=== PATIENT | male | born 1945 | race Caucasian/White ===

== ENCOUNTER → 2017-06-25 | Outpatient (CLI) | payer MEDICARE, BC ==
--- NOTE | 2017-06-25 17:09 | EXE ---
[place] [address] STRESS ECHOCARDIOGRAM Name: HOLLY BOYCE Room: [facility]#: [id number] Admission: 06/25/17 Attend Phys: Isaiah Melchor, Discharge: Date of : 43 Date of Service: 06/25/17 1708 Report #: [id number] THIS REPORT FOR: //name// APPROVED REPORT Study performed: 06/25/2017 13:14:41 Exam: Stress Echocardiogram Indication: Dyspnea Stress Nurse: Floresita Guerra RN Supervising Physician: Grabiel Alvarado MD Status: routine Ht: 6 ft 0 in HR: 67 bpm BP: 129/69 mmHg Rhythm: NSR Medical History Cardiac Risk Factors: FHX of CAD, HTN Procedure The patient underwent an Exercise Stress Test using the Catracho Protocol. Blood pressure, heart rate, and EKG were monitored. An Echocardiogram was performed by prepress technician in four stages in quad fashion. At peak stress, four selected images were obtained and placed side by side with resting images for comparison. Echo Enhancing Agent Indication: Endocardial border delineation Agent(s) / Amount(s) Used: Optison 8 cc Stress Test Details Stress Test: Exercise stress testing was performed using a Catracho protocol. HR Resting HR: 67 bpm Max Heart Rate (APMHR): 148 bpm Max HR Achieved: 158 bpm Target HR (85% APMHR): 125 bpm % of APMHR: 106 Recovery HR: 90 bpm HR response to stress: Normal HR response to stress BP Resting BP: 129/69 mmHg Max BP: 223/82 mmHg Recovery BP: 158/64 [place] [address] STRESS ECHOCARDIOGRAM Name: HOLLY BOYCE Room: [facility]#: [id number] Admission: 06/25/17 Attend Phys: Isaiah Melchor, Discharge: Date of : 43 Date of Service: 06/25/17 1708 Report #: [id number] ECG Resting ECG: Sinus Rhythm Stress ECG: Sinus Tachycardia Maximum ST Deviation: 0 mm Recovery ECG: Sinus Rhythm Recovery ST Deviation: 0 mm Clinical Reason for Termination: Maximal effort, Dyspnea Exercise duration: 5 min sec Highest Stage Achieved: Stage 2: 2.5 mph at 12% grade. Exercise capacity: 7.03 METs Pre-Stress Echo The resting Echocardiogram showed normal left ventricular contractility with an estimated Ejection Fraction of about 55-60%. Post-Stress Echo The stress Echocardiogram showed normal left ventricular contractility with an estimated Ejection Fraction of about 65-70%. Conclusion Clinical Response: Non-ischemic Exercise Capacity: Below Average Stress ECG Response: Non-ischemic Stress Echo Images: Non-ischemic low risk stress echo for future cardiac events Other Information Study Quality: Adequate <Conclusion> low risk stress echo for future cardiac events <ELECTRONICALLY SIGNED> By: Grabiel Alvarado MD, FACC 06/25/171707 07 07 Grabiel Alvarado MD, FACC /INF
== END ==
LOC: M.CRD 12:27
DX: R06.09 Other forms of dyspnea (principal)

== ENCOUNTER 2020-12-13 09:41 | Observation (INO) | payer MEDICARE, BC ==
[2020-12-13] VITALS (14 sets, daily range): BP systolic 111–147; BP diastolic 52–76
[~2020-12-13] VITALS: Ht 182.9 cm; Wt 127.0 kg
[~2020-12-13 09:41] MED LIST: ADULT LOW DOSE81 MG PO; CENTRUM SILVER1 EAC5 PO; CHOLECALCIFEROL1 GM; COZAAR 50 MG TA50 M1 PO; GLUCOSAMINE &1 EACH PO; MEGARED OMEGA-1 EAC1 PO
[2020-12-13 10:34] LABS: ABSOLUTE BASOPHILS 0.1 thou/uL (0.0-0.2); ABSOLUTE EOSINOPHILS 0.3 thou/uL (0.0-0.7); ABSOLUTE LYMPHOCYTES 2.8 thou/uL (0.8-5.3); ABSOLUTE MONOCYTES 0.7 thou/uL (0.0-1.2); ABSOLUTE NEUTROPHILS 4.5 thou/uL (1.6-8.1); BASOPHILS 1.1 %; EOSINOPHILS 3.6 %; HEMATOCRIT 45.5 % (42.0-52.0); HEMOGLOBIN 15.3 gm/dL (14.0-18.0); LYMPHOCYTES 33.2 %; MCH 29.6 pg (26.0-34.0); MCHC 33.7 g/dL (28.0-37.0); MONOCYTES 8.7 %; MPV 7.9 fl. (7.2-11.1); NUCLEATED RBCS 0 /100WBC; PLATELET COUNT* 238 thou/uL (150-400); POLYS 53.4 %; RBC 5.17 mil/uL (4.50-6.00); RDW-CV 13.5 % (10.5-14.5); WBC 8.5 thou/uL (4.0-11.0)
[2020-12-13 10:42] LABS: APTT 27.2 Seconds (25.0-31.3); PROTIME 10.4 Seconds (9.20-11.50)
[2020-12-13 11:07] LABS: ANION GAP 10 mmol/L (7-16); BUN 16 mg/dL (7-18); CALCIUM 8.9 mg/dL (8.5-10.1); CHLORIDE 101 mmol/L (98-107); CO2 28 mmol/L (21-32); CREATININE 1.4 mg/dL (0.6-1.3); GLUCOSE 107 mg/dL (70-99); POTASSIUM 4.2 mmol/L (3.5-5.1); SODIUM 139 mmol/L (136-145)
[2020-12-13 11:11] LABS: ALBUMIN 4.2 g/dL (3.4-5.0); ALKALINE PHOSPHATASE 78 U/L (46-116); CHOLESTEROL 188 mg/dL (<200); HDL CHOLESTEROL 44 mg/dL (>40); LDL CHOLESTEROL 112 mg/dL (<100); SGOT 21 U/L (15-37); SGPT 28 U/L (30-65); TC:HDL 4.3 Ratio (Not establshd); TOTAL PROTEIN 7.9 g/dL (6.4-8.2); TRIGLYCERIDE 163 mg/dL (<150); VLDL 33 mg/dL (<40)
[2020-12-13 11:12] LABS: SERUM ASSESSMENT Clear
--- NOTE | 2020-12-13 14:23 | EKG ---
[place] [address] ELECTROCARDIOGRAM REPORT Name: AUSTENDEBORAHHOLLY W [address] [id number] Admission: 12/13/20 Attend Phys: Isaiah Melchor, Discharge: Date of : 43 Date of Service: 12/13/20 1027 Report #: [id number] THIS REPORT FOR: //name// [facility] Test Date: 2020-12-13 Test Time: 10:27:37 Pat Name: HOLLY BOYCE Department: Room: [facility] Gender: M Director Of Purchasing: WELSEY : 1945 Requested By: Isaiah Melchor Order Number: [id number] Hanna MD: Grabiel Alvarado Measurements Intervals [place] Rate: 74 P: 5 TN: 196 QRS: -4 QRSD: 92 T: 14 QT: 384 QTc: 426 Interpretive Statements Sinus rhythm RSR' in V1 or V2, right VCD or RVH No previous ECG available for comparison Electronically Signed On 12-13-2020 14:23:15 CDT by Grabiel Alvarado [email or web address] <ELECTRONICALLY SIGNED> By: Grabiel Alvarado MD, [facility] 12/13/20 1423 1027 1027 Grabiel Alvarado MD, [facility] /EPI
--- NOTE | 2020-12-13 14:24 | EKG ---
[place] [address] ELECTROCARDIOGRAM REPORT Name: HOLLY BOYCE Room: [address]#: [id number] Admission: 12/13/20 Attend Phys: Isaiah Melchor, Discharge: Date of : 43 Date of Service: 12/13/20 1349 Report #: [id number] THIS REPORT FOR: //name// [facility] Test Date: 2020-12-13 Test Time: 13:49:38 Pat Name: HOLLY BOYCE Department: Room: [facility] Gender: M Hardwood Floor Layer: WESLEY : 1945 Requested By: Grabiel Alvarado Order Number: [id number] Reading MD: Grabiel Alvarado Measurements Intervals [place] Rate: 81 P: 31 AL: 184 QRS: -3 QRSD: 95 T: 18 QT: 399 QTc: 464 Interpretive Statements Sinus rhythm RSR' in V1 or V2, right VCD or RVH Compared to ECG 12/13/2020 10:27:37 No significant changes Electronically Signed On 12-13-2020 14:24:39 CDT by Grabiel Alvarado [email or web address] <ELECTRONICALLY SIGNED> By: Grabiel Alvarado MD, [facility] 12/13/20 1424 1349 1349 Grabiel Alvarado MD, [facility] /EPI
--- NOTE | 2020-12-13 16:43 | CARD ---
[address] [address] CARDIAC CATH REPORT Name: HOLLY BOYCE Room: [address] Abril Kearns#: [id number] Admission: 12/13/20 Attend Phys: Isaiah Melchor MD Discharge: Date of : 43 Report #: [id number] THIS REPORT FOR: cc: Nikolas Villalobos Vincent R. DO Blick, David R. MD [facility] ~ APPROVED REPORT Study performed: 12/13/2020 10:30:05 Patient Details Patient Status: Out-Patient Room #: The patient is a 75 year-old male Procedures Performed cath pci Indication Dyspnea, Positive stress test Risk Factors Hypercholesterolemia, Hypertension Admission/Lab Medications/Medications given during procedure Glycoprotein IllbIlla Inhibitors, Heparin Unfract. Procedure Narrative The patient was brought electively to the Cardiac Catheterization Laboratory and was prepped and draped in a sterile manner. The right femoral was infiltrated with 1% Lidocaine subcutaneous anesthesia. IV conscious sedation was used throughout procedure with appropriate monitoring and was performed in the presence of a registered nurse who was an independent trained observer other than the physician performing the procedure. The right femoral accessed via ultrasound guidance. A Providence 6fr sheath was inserted into the right femoral artery. Coronary angiography was performed using coronary diagnostic catheters. The right coronary system was accessed and visualized with a Diagnostic - JR4 catheter. The left coronary system was accessed and visualized with a Diagnostic -JL4 catheter. The left ventricle was accessed and visualized with a Diagnostic - Straight PIG catheter. Left ventricular/Aortic Valve gradient assessed via catheter pullback. Left ventriculogram was performed in HEARD projection. Closure device was deployed with a 6 [place] [address] CARDIAC CATH REPORT Name: HOLLY BOYCE Room: [address] García.#: [id number] Admission: 12/13/20 Attend Phys: Isaiah Melchor MD Discharge: Date of : 43 Report #: [id number] Hemostasis was obtained with manual pressure following sheath removal without any complications. The patient tolerated the procedure well and there were no complications associated with the procedure. A hematoma occurred. Attempted placement of an Angioseal, but the device was unable to be deployed. Hemostasis was achieved by manual pressure Intraoperative Conscious Sedation Sedation start time: 1149 Case end Time: 1245 Fentanyl 75.0 mcg Versed 2.0 mg Fluoro Time: 10.8 minutes Dose: DAP [id number] cGycm2 Diagnostic Cath Left Main The left main coronary artery is normal. LAD There are sequential 30% narrowings in the proximal and then mid left anterior ascending coronary artery. Diagonal 1 A moderate-sized first diagonal branch is normal. Diagonal 2 A moderate-sized second diagonal branch is normal. Circumflex There is a 30% ostial to proximal circumflex narrowing that is eccentric. The mid vessel exhibits a focal 80% narrowing. OM1 A tiny first obtuse marginal branch has a 50% ostial narrowing. OM2 A large second obtuse marginal branch is essentially normal. OM3 A large third obtuse marginal branch is essentially normal. 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 The vessel appears essentially normal in its proximal mid and distal portion. R PDA A moderate sized right PDA appears normal. RPLV A small right posterior lateral LV branch appears normal. Left Ventriculography The left ventricle is normal in size with normal contractility. The left ventricular ejection fraction is estimated to be 65%. Hemodynamics The aortic pressure is 111/59 mmHg with a mean of 79 mmHg. The left ventricular pressure is 125/0 mmHg with a mean of 19 [place] [address] CARDIAC CATH REPORT Name: HOLLY BOYCE Room: [address]#: [id number] Admission: 12/13/20 Attend Phys: Isaiah Melchor MD Discharge: Date of : 43 Report #: [id number] ventricular end diastolic pressure is 10 mmHg. There was no gradient across the aortic valve upon pullback. PCI Technique Lesion Anticoagulation was achieved with Heparin. bolus of IV aggrastat given Percutaneous coronary intervention was performed on the mid circumflex artery segment. The lesion stenosis prior to intervention was 80% with GERTRUDE 3 flow. A xb4.0 Guide Catheter was used to engage the lm ostium. A bmw Interventional Guidewire was used to cross the lesion. BALLOON DILATION A Balloon catheter 2.5 x 12 mm was inserted and inflated up to 16atm for 10seconds. Repeat angiography revealed the following post-dilatation results: 40% stenosis. STENT DEPLOYMENT A drug-eluting stent 3.0 x 15 mm was inserted and inflated up to 14atm for 15seconds. Repeat angiography revealed the following post-stent deployment results: 0% stenosis. Final angiography reveals 0 % stenosis with GERTRUDE 3 flow. Conclusion 1. Significant 80% narrowing of the mid circumflex coronary artery. 2. Otherwise moderate plaquing noted. 3. Normal left-ventricular systolic function. 4. Normal left ventricular end-diastolic pressure. 5. successful placement of a drug eluting stent in the mid circumflex artery. Recommendations 1. Percutaneous coronary intervention as performed. 2. Continue aggressive risk factor modification. Medications Administered Clopidogrel Diagnostic Cath Approved by: Isaiah Melchor MD Date/Time: <ELECTRONICALLY SIGNED> By: Grabiel Alvarado MD, [facility] 12/13/20 1643 164 1643Davijs Alvarado MD, [facility] /INF
[2020-12-14 01:07] VITALS: BP 116/54
[2020-12-14 04:03] LABS: HEMATOCRIT 35.5 % (42.0-52.0); MCH 30.2 pg (26.0-34.0); MCV 88.7 fL (80.0-100.0); MPV 7.8 fl. (7.2-11.1); RDW-CV 13.3 % (10.5-14.5); WBC 9.9 thou/uL (4.0-11.0)
[2020-12-14 04:08] LABS: HEMOGLOBIN 12.1 gm/dL (14.0-18.0)
[2020-12-14 04:31] LABS: CALCIUM 8.3 mg/dL (8.5-10.1); CREATININE 1.5 mg/dL (0.6-1.3); POTASSIUM 4.8 mmol/L (3.5-5.1)
[2020-12-14] MEDS ORDERED: CLOPIDOGREL75 MG PO (08:14)
[2020-12-14] MEDS ORDERED: LIPITOR 40 MG T40 M1 PO (08:14)
[2020-12-14 08:30] VITALS: BP 152/76
[2020-12-14 09:32] VITALS: BP 116/54
--- NOTE | 2020-12-14 11:23 | EKG ---
[place] [address] ELECTROCARDIOGRAM REPORT Name: HOLLY BOYCE Room: [address]#: [id number] Admission: 12/13/20 Attend Phys: Isaiah Melchor, Discharge: 12/14/20 Date of : 43 Date of Service: 12/14/20621 Report #: [id number] THIS REPORT FOR: //name// [facility] Test Date: 2020-12-14 Test Time: 06:22:37 Pat Name: HOLLY BOYCE Department: Room: [address] Gender: M Door Technician: [id number] : 1945 Requested By: Grabiel Alvarado Order Number: [id number] Hanna MD: Grabiel lAvarado Measurements Intervals [place] Rate: 65 P: 7 DE: 185 QRS: -5 QRSD: 97 T: 16 QT: 408 QTc: 425 Interpretive Statements Sinus rhythm Consider RVH or posterior infarct Compared to ECG 12/13/2020 13:49:38 no change Electronically Signed On 12-14-2020 11:23:22 CDT by Grabiel Alvarado [email or web address] <ELECTRONICALLY SIGNED> By: Grabiel Alvarado MD, FAC 12/14/20 1123 0622 0622 Grabiel Alvarado MD, [facility] /EPI
--- NOTE | 2020-12-17 09:47 | D ---
[address] [address] DISCHARGE SUMMARY Name: HOLLY BOYCE Room: [address] Abril Kearns#: [id number] Admission: 12/13/20 Attend Phys: Isaiah Melchor MD Discharge: 12/14/20 Date of : 43 Report #: [id number] THIS REPORT FOR: cc: Nikolas Villalobos,Isaiah Chase MD [facility] ~ cc: Dr. Nikolas Villalobos DATE OF DISCHARGE: 12/14/2020 DISCHARGE DIAGNOSES: 1. Unstable angina. 2. Coronary artery disease. 3. Hypertension. 4. Dyslipidemia. PROCEDURES DURING HOSPITALIZATION: 1. Coronary angiography. 2. Left ventriculography. 3. Left heart catheterization. 4. Percutaneous coronary intervention to the mid circumflex coronary artery with drug-eluting stent placement. HISTORY AND HOSPITAL COURSE: The patient was admitted electively for left heart catheterization and coronary angiography after an abnormal stress test. His primary complaint had been dyspnea on exertion that had been progressive. On catheterization, he was found to have an 80% mid circumflex coronary stenosis for which he underwent drug-eluting stent placement with excellent result. He had otherwise moderate nonocclusive coronary disease noted. Left ventricular systolic function on left ventriculogram was normal. The patient had a small hematoma post-catheterization that was stable at the time of discharge. His hospital course was otherwise unremarkable. DISCHARGE MEDICATIONS: Will include Plavix 75 mg daily, aspirin 81 mg daily, vitamin C one tablet daily, losartan 50 mg daily, Krill oil supplement daily, multivitamin 1 tablet daily, and atorvastatin 40 mg daily. DISPOSITION: The patient is to follow up in the Cardiology office in 4 weeks. <ELECTRONICALLY SIGNED> By: Isaiah Melchor MD, FACC 12/17/20 0947 0721 0820[facility] MD, FACC /nt
== END 2020-12-14 10:15 | disposition home or self-care (01) ==
LOC: M.CL 09:41 → M.TBA-CV 13:58 → M.2W 14:19
PROVIDERS: Internal Medicine Cardiovascular Disease; ADMIT Internal Medicine Cardiovascular Disease; ATTEND Internal Medicine Cardiovascular Disease
DX: I25.110 Atherosclerotic heart disease of native coronary artery with unstable angina pectoris (principal); Z20.822 Contact with and (suspected) exposure to COVID-19; I10 Essential (primary) hypertension; E78.5 Hyperlipidemia, unspecified; Z79.02 Long term (current) use of antithrombotics/antiplatelets; Z79.01 Long term (current) use of anticoagulants; Z79.82 Long term (current) use of aspirin; Z79.899 Other long term (current) drug therapy

== ENCOUNTER → 2020-12-18 | Outpatient (CLI) | payer MEDICARE, BC ==
[~2020-12-18] MED LIST changes: +CLOPIDOGREL75 MG PO; +LIPITOR 40 MG T40 M1 PO
--- NOTE | ~2020-12-18 | H ---
[place] [address] HISTORY AND PHYSICAL Name: HOLLY BOYCE Room: [facility]#: [id number] Admission: 12/18/20 Attend Phys: Isaiah Melchor MD Discharge: Date of : 43 Report #: [id number] THIS REPORT FOR: cc: Nikolas Villalobos Vincent R. DO Liston, Michael J. MD [facility] ~ cc: Nikolas Villalobos DO DATE OF SERVICE: 12/18/2020 ADMISSION HISTORY AND PHYSICAL INDICATION: The patient with abnormal stress test and physical symptoms being admitted for cardiac catheterization and possible coronary intervention. HISTORY OF PRESENT ILLNESS: The patient is a very pleasant 75-year-old gentleman with cardiac risk factors including hypertension and family history of coronary artery disease. He has been having increasing dyspnea on exertion. He underwent cardiac stress testing that showed evidence of stress-induced ischemia. He is being brought to the hospital today for coronary angiography and possible intervention. PAST MEDICAL HISTORY: 1. Hypertension. 2. Abnormal stress test. FAMILY HISTORY: Positive for coronary artery disease. SOCIAL HISTORY: The patient is . He does not smoke. He does not drink alcohol. REVIEW OF SYSTEMS: A 14-point review of systems positive for cough, shortness of breath, dyspnea on exertion. Otherwise, unremarkable. PHYSICAL EXAMINATION: VITAL SIGNS: Stable. Blood pressure is 148/66, pulse is 76 and regular. GENERAL: This is a pleasant-appearing healthy gentleman in no distress. Mood and affect appropriate. HEENT: The patient is wearing glasses. Extraocular muscles intact. Mucous membranes are moist. NECK: Shows no jugular venous distention. There are no carotid bruits. CHEST: Reveals clear lung frey without wheezes or rales. CARDIAC: Reveals a regular rhythm without gallop or murmur. ABDOMEN: Reveals normal bowel sounds. The abdomen is soft, nontender. EXTREMITIES: Shows no edema. Peripheral pulses 2+ and palpable. SKIN: [place] [address] HISTORY AND PHYSICAL Name: HOLLY BOYCE Kurt Room: [facility]#: [id number] Admission: 12/18/20 Attend Phys: Isaiah Melchor MD Discharge: Date of : 43 Report #: [id number] IMPRESSION AND RECOMMENDATIONS: 1. Abnormal stress test with symptoms to suggest angina. Plan: Coronary angiography and possible intervention. 2. Hypertension, adequately controlled at present. Continue home medications. 3. Possible dyslipidemia. Recommend follow up fasting lipid profile. By: 1705 1729Isaiah Melchor MD, FACC /nt
== END ==
LOC: M.ULTRA 15:53
PROVIDERS: ATTEND Internal Medicine Cardiovascular Disease
DX: T81.718A Complication of other artery following a procedure, not elsewhere classified, initial encounter (principal); I72.4 Aneurysm of artery of lower extremity; Y83.8 Other surgical procedures as the cause of abnormal reaction of the patient, or of later complication, without mention of misadventure at the time of the procedure; Y92.89 Other specified places as the place of occurrence of the external cause

== ENCOUNTER → 2021-01-14 | Outpatient (CLI) | payer MEDICARE, BC ==
[2021-01-14 09:46] LABS: CALCIUM 8.9 mg/dL (8.5-10.1); CREATININE 1.3 mg/dL (0.6-1.3); POTASSIUM 4.3 mmol/L (3.5-5.1)
== END ==
LOC: M.LAB 09:25
PROVIDERS: ATTEND Nurse Practitioner
DX: N28.9 Disorder of kidney and ureter, unspecified (principal)

== ENCOUNTER → 2021-02-25 | Outpatient (CLI) | payer MEDICARE, BC ==
[2021-02-25 10:39] LABS: ALBUMIN 3.7 g/dL (3.4-5.0); ALKALINE PHOSPHATASE 71 U/L (46-116); CHOLESTEROL 116 mg/dL (<200); DIRECT BILIRUBIN 0.2 mg/dL (<0.1-0.3); HDL CHOLESTEROL 40 mg/dL (>40); LDL CHOLESTEROL 43 mg/dL (<100); SGOT 19 U/L (15-37); SGPT 28 U/L (30-65); TC:HDL 2.9 Ratio (Not establshd); TOTAL BILIRUBIN 0.9 mg/dL (<0.1-1.0); TOTAL PROTEIN 7.3 g/dL (6.4-8.2); TRIGLYCERIDE 167 mg/dL (<150); VLDL 33 mg/dL (<40)
[2021-02-25 10:41] LABS: SERUM ASSESSMENT Clear
== END ==
LOC: M.LAB 09:44
PROVIDERS: ATTEND Nurse Practitioner
DX: E78.5 Hyperlipidemia, unspecified (principal)